=== PATIENT | female | born 1965 | race Caucasian/White ===

== ENCOUNTER → 2016-06-28 | Outpatient (CLI) | payer OTHER ==
--- NOTE | 2016-06-28 10:29 | DX ---
Bilateral Knees, 3 views of each including standing AP, lateral and merchant views HISTORY: Knee pain x 3 months, evaluate for arthritis COMPARISON: None FINDINGS- right and left: There is mild relative symmetric widening of the lateral joint compartment of each knee. Overall mineralization is normal. There is no chondrocalcinosis, sclerosis, spurring, s ubcortical cyst formation or erosive change. There is no evidence of a knee joint effusion in either knee. The patellas are in normal location. The patellofemoral joints are symmetric, however the later al joints are more horizontal and longer than the shorter more vertically oriented medial patellar fa cets. IMPRESSION: Anatomy that might predispose this patient to bilateral patellar tracking problems.
== END ==
LOC: BMCIMAGING 09:44
PROVIDERS: ATTEND Internal Medicine Rheumatology
DX: M25.561 Pain in right knee (principal); M25.562 Pain in left knee

== ENCOUNTER → 2016-12-21 | Outpatient (CLI) | payer OTHER | LOC: FIMAGING 09:30 | PROVIDERS: ATTEND Orthopaedic Surgery Sports Medicine | DX: M79.661 Pain in right lower leg (principal); Z98.890 Other specified postprocedural states ==